=== PATIENT | female | born 1985 | race African-American/Black ===

== ENCOUNTER 2016-06-27 01:14 | Emergency (ER) | payer SELFPAY ==
[2016-06-27 01:15] VITALS: BP 115/58; PULSE 68; RESP 16; TEMP 98; O2SAT 98
[2016-06-27] MEDS ORDERED: ZOFR4TAB3 SL (10:25)
== END 2016-06-27 01:35 | disposition left against medical advice (07) ==
LOC: NED 01:14
DX: R68.89 Other general symptoms and signs (principal)
CPT/HCPCS: 99281

== ENCOUNTER 2016-06-27 03:30 | Emergency (ER) | payer MEDICAID, OTHER ==
[2016-06-27 03:33] VITALS: BP 112/62; PULSE 76; RESP 16; TEMP 98.2; O2SAT 97
[2016-06-27] MEDS ORDERED: ONDANSETRON ODT 4 MG TAB PO ONE (10:00)
[2016-06-27] MEDS ORDERED: ZOFR4TAB3 SL (10:25)
--- NOTE | 2016-06-27 10:25 | PD ---
HPI Chief Complaint: Abdominal Pain Time Seen by Provider: 09:58 Travel History International Travel<30 days: No Contact w/Intl Traveler<30days: No Traveled to known affect area: No History of Present Illness HPI So 31-year-old woman who is approximately 10 weeks , 5 para 2, 0 , 2, 2 with 2 previous abortions, last initial period April 16, presents emergency department saying that she's felt poorly for the past month and half with nausea vomiting abdominal pain. She apparently was seen at [facility] but did not really get seen because of their wait. She is not tried any medications at home. She has no OB doctor here. She has no other past medical history. No other complaints. History Past Medical History Medical History: Denies Significant Hx LMP: 03/2017 Social History Tobacco Use: No Allergies-Medications (Allergen,Severity, Reaction): Coded Allergies: No Known Allergies (Unverified , 06/27/16) Reported Meds & Prescriptions Reported Meds & Active Scripts Active Zofran Odt (Ondansetron Odt) 4 Mg Tab 4 Mg SL Q8HR PRN May substitute non-ODT form. Review of Systems Except as stated in HPI: all other systems reviewed are Neg Physical Exam Narrative GENERAL: 31 year-old woman, no acute distress. SKIN: Warm and dry. HEAD: Atraumatic. Normocephalic. CARDIOVASCULAR: Regular rate and rhythm. No murmur appreciated. RESPIRATORY: No accessory muscle use. Clear to auscultation. Breath sounds equal bilaterally. GASTROINTESTINAL: Abdomen soft, non-tender, nondistended. Hepatic and splenic margins not palpable. MUSCULOSKELETAL: No obvious deformities. No edema. NEUROLOGICAL: Awake and alert. No obvious cranial nerve deficits. Motor grossly within normal limits. Normal speech. PSYCHIATRIC: Appropriate mood and affect; insight and judgment normal. Data Data Last Documented VS Vital Signs Date Time Temp Pulse Resp B/P Pulse Ox O2 Delivery O2 Flow Rate FiO2 06/27/16 03:35 06/27/16 03:33 98.2 76 16 97 Orders Complete Blood Count With Diff (06/27/16 09:58) Basic Metabolic Panel (Bmp) (06/27/16 09:58) Ed Poc Ultrasound (06/27/16 09:58) Ondansetron Odt (Zofran Odt) (06/27/16 10:00) Labs Laboratory Tests Test 06/27/16 10:25 White Blood Count 9.9 TH/MM3 Red Blood Count 4.81 MIL/MM3 Hemoglobin 13.7 GM/DL Hematocrit 39.2 % Mean Corpuscular Volume 81.5 FL Mean Corpuscular Hemoglobin 28.4 PG Mean Corpuscular Hemoglobin 34.9 % Concent Red Cell Distribution Width 14.3 % Platelet Count 258 TH/MM3 Mean Platelet Volume 9.9 FL Neutrophils (%) (Auto) 82.7 % Lymphocytes (%) (Auto) 9.4 % Monocytes (%) (Auto) 7.7 % Eosinophils (%) (Auto) 0.0 % Basophils (%) (Auto) 0.2 % Neutrophils # (Auto) 8.2 TH/MM3 Lymphocytes # (Auto) 0.9 TH/MM3 Monocytes # (Auto) 0.8 TH/MM3 Eosinophils # (Auto) 0.0 TH/MM3 Basophils # (Auto) 0.0 TH/MM3 CBC Comment DIFF FINAL Differential Comment Sodium Level 137 MEQ/L Potassium Level 3.7 MEQ/L Chloride Level 102 MEQ/L Carbon Dioxide Level 25.4 MEQ/L Anion Gap 10 MEQ/L Blood Urea Nitrogen 13 MG/DL Creatinine 1.00 MG/DL Estimat Glomerular Filtration 78 ML/MIN Rate Random Glucose 145 MG/DL Calcium Level 9.8 MG/DL MDM Medical Decision Making Medical Screen Exam Complete: Yes Emergency Medical Condition: Yes Differential Diagnosis Nausea vomiting of , dehydration, ketosis, infection, other Narrative Course Medical decision making 31 year-old woman presents emergency Department with nausea and vomiting of times a month and a half. She looks well. Benign exam. We'll do a quick bedside ultrasound, check labs, by mouth hydration, by mouth Zofran. FINAL: Labs are unremarkable. Patient feels pretty uncomfortable by some IV fluids. We'll take her back to [facility], give HER 2 liters of IV fluids, and discharge after that. Diagnosis Primary Impression: Nausea/vomiting in Additional Impression: Dehydration Additional Instructions: Follow-up with an traveling representative. Return to the emergency department for any worsening abdominal pain, vaginal bleeding, cramping, or any other new or worsening symptoms. 6 Zofran as needed for nausea or vomiting. Med/Other Pt SpecificInfo: Prescription(s) given Scripts Ondansetron Odt (Zofran Odt)4 Mg Tab4 Mg SL Q8HR PRN (Nausea/Vomiting) #15 TAB May substitute non-ODT form. Prov:Mathew Silva MD 06/27/16 Disposition: 01 DISCHARGE HOME Condition: Stable Mathew Silva MD Jun 27, 2016 10:25
[2016-06-27 10:43] LABS: AUTOMATED NEUTROPHIL # 8.2 TH/MM3 (1.8-7.7); BASOPHIL % 0.2 % (0.0-2.0); HEMATOCRIT 39.2 % (35.0-46.0); HEMO FLAGS DIFF FINAL; LYMPH % 9.4 % (9.0-44.0); LYMPHOCYTE # 0.9 TH/MM3 (1.0-4.8); MEAN CELL VOLUME 81.5 FL (80.0-100.0); MEAN CORPUSCULAR HEMOGLOBIN 28.4 PG (27.0-34.0); MEAN CORPUSCULAR HGB CONC 34.9 % (32.0-36.0); MONO % 7.7 % (0.0-8.0); NEUT % 82.7 % (16.0-70.0); PLATELET COUNT 258 TH/MM3 (150-450); RED BLOOD COUNT 4.81 MIL/MM3 (4.00-5.30); RED CELL DISTRIBUTION WIDTH 14.3 % (11.6-17.2); WHITE BLOOD COUNT 9.9 TH/MM3 (4.0-11.0)
[2016-06-27 10:55] LABS: BICARBONATE 25.4 MEQ/L (21.0-32.0); POTASSIUM 3.7 MEQ/L (3.5-5.1)
[2016-06-27] MEDS ORDERED: SODIUM CHLOR 0.9% 1000 ML INJ 1,000 ML IV ONE ×2 (11:15)
== END 2016-06-27 13:23 | disposition home or self-care (01) ==
LOC: NEPD 03:30
DX: O21.0 Mild hyperemesis gravidarum (principal); E86.0 Dehydration; Z3A.10 10 weeks gestation of pregnancy
CPT/HCPCS: 80048; 85025; 96360; 96361; 99284; J7030